=== PATIENT | female | born 1990 | race Two or more races ===

== ENCOUNTER 2020-11-25 12:20 | Emergency (ER) | payer MEDICAID ==
[~2020-11-25] VITALS: Ht 165.1 cm; Wt 108.9 kg
[2020-11-25 12:57] LABS: Basophils # (auto) 0 10 ^3/uL (0-0.2); Basophils % (auto) 0.3 % (0.0-2.0); Eosinophils # (auto) 0 10 ^3/uL (0-0.8); Eosinophils % (auto) 0.2 % (0.0-7.0); Hematocrit 32.1 % (36.0-46.0); Lymphocytes # (auto) 2.7 10 ^3/uL (0.4-5.4); Lymphocytes % (auto) 32.2 % (10.0-50.0); Mean Corpuscular Hemoglobin 27.7 pg (28.0-32.0); Mean Corpuscular Hgb Conc. 34.4 g/dL (32.0-36.0); Mean Corpuscular Volume 80.5 fL (80.0-100.0); Monocytes # (auto) 0.4 10 ^3/uL (0-1.3); Monocytes % (auto) 4.8 % (0.0-12.0); Neutrophils # (auto) 5.2 10 ^3/uL (1.6-8.6); Neutrophils % (auto) 62.5 % (37.0-80.0); Red Blood Cells 3.99 10^6/uL (4.0-5.20); Red Cell Distribution Width 13.7 % (11.8-14.3); White Blood Cell 8.3 10^3/uL (4.4-10.8)
[2020-11-25] MEDS ORDERED: KETOROLAC TROMETH 60MG/2ML VIAL IM ONE (15:15)
[2020-11-25 15:17] LABS: Urine Bacteria NONE SEEN /hpf (None Seen); Urine Blood 3+ /uL (Negative); Urine Budding Yeast OCCASIONAL /hpf (None Seen); Urine WBC 313 /hpf (0 - 5); Urine WBC Clumps PRESENT /hpf (None Seen)
[2020-11-25 15:21] VITALS: BP 121/82
== END 2020-11-25 15:45 | disposition home or self-care (01) ==
LOC: ER 12:20
DX: N92.0 Excessive and frequent menstruation with regular cycle (principal); N30.00 Acute cystitis without hematuria
CPT/HCPCS: 36415; 81001; 81025; 85025; 96372; 99283; J1885

== ENCOUNTER 2022-08-29 13:14 | Inpatient (IN) | payer MEDICAID ==
[~2022-08-29] VITALS: Ht 165.1 cm; Wt 115.5 kg
[2022-08-29 04:58] VITALS: BP 120/63
[2022-08-29] MEDS ORDERED: ALBUTEROL SULF 2.5 MG/0.5ML(0.5%) NEB SOLN HHN ONE (13:45)
[2022-08-29] MEDS ORDERED: methylPREDNISolone SOD SUCC 125 MG/2 ML VL IV ONE (13:45)
[2022-08-29] MEDS ORDERED: IPRATROPIUM BROM 0.5 MG/2.5ML INH SOL HHN ONE (13:45)
[2022-08-29 14:02] LABS: Basophils # (auto) 0 10 ^3/uL (0-0.2); Basophils % (auto) 0.2 % (0.0-2.0); Eosinophils # (auto) 0 10 ^3/uL (0-0.8); Hematocrit 32.5 % (36.0-46.0); Mean Corpuscular Hemoglobin 26.1 pg (28.0-32.0); Monocytes # (auto) 1.2 10 ^3/uL (0-1.3); Red Cell Distribution Width 14.9 % (11.8-14.3)
[2022-08-29 14:03] LABS: Eosinophils % (auto) 0.1 % (0.0-7.0); Hemoglobin 10.7 g/dL (12.2-16.2); Lymphocytes # (auto) 3.5 10 ^3/uL (0.4-5.4); Mean Corpuscular Hgb Conc. 32.8 g/dL (32.0-36.0); Mean Corpuscular Volume 79.5 fL (80.0-100.0); Neutrophils # (auto) 12.7 10 ^3/uL (1.6-8.6); Neutrophils % (auto) 72.7 % (37.0-80.0); Nucleated Red Blood Cells % 0.2 %; Red Blood Cells 4.08 10^6/uL (4.0-5.20); White Blood Cell 17.4 10^3/uL (4.4-10.8)
[2022-08-29 14:16] LABS: Albumin 2.9 g/dL (3.4-5.0); Calcium 8.9 mg/dL (8.5-10.1); Magnesium 2.2 mg/dL (1.6-2.6); Potassium 3.4 mmol/L (3.5-5.1)
[2022-08-29 14:20] LABS: BUN/Creatinine Ratio 12.5 (10.0-20.0); Bilirubin, Total 0.2 mg/dL (0.2-1.0); Total Protein 8.1 g/dL (6.4-8.2)
[2022-08-29 14:26] LABS: INR 0.92 (0.9-1.15); Partial Thromboplastin Time 25.1 sec (24.6-33.4)
[2022-08-29 16:00] VITALS: BP 125/73
[2022-08-29] MEDS ORDERED: cefTRIAXone 1GM/50ML D5W 50 ML IV ONE (16:00)
[2022-08-29] MEDS ORDERED: ALBUTEROL SULF 2.5 MG/0.5ML(0.5%) NEB SOLN NEB PRN (16:00)
[2022-08-29] MEDS ORDERED: AZITHROMYCIN 500MG/ 250ML 250 ML IV ONE (16:00)
[2022-08-29] MEDS ORDERED: POTASSIUM EFFERVESENT TAB 25 MEQ PO ONE (16:15)
[2022-08-29 16:55] LABS: Cholesterol 145 mg/dL (< 200)
[2022-08-29 16:59] LABS: HDL Cholesterol 49 mg/dL (40-59); LDL Cholesterol 74 mg/dL (< 100); Triglycerides 157 mg/dL (< 150)
[2022-08-29] MEDS: ALBUTEROL SULF 2.5 MG/0.5ML(0.5%) NEB SOLN NEB SCH ×2 (18:13→22:05)
[2022-08-29] MEDS: IPRATROPIUM BROM 0.5 MG/2.5ML INH SOL NEB SCH ×2 (18:13→22:05)
[2022-08-29 20:57] LABS: Urine Bacteria NONE SEEN /hpf (None Seen); Urine Blood Negative /uL (Negative); Urine Specific Gravity 1.017 (1.001-1.035); Urine WBC 1 /hpf (0 - 5)
[2022-08-30] MEDS: ALBUTEROL SULF 2.5 MG/0.5ML(0.5%) NEB SOLN NEB SCH ×6 (02:03→22:05)
[2022-08-30] MEDS: IPRATROPIUM BROM 0.5 MG/2.5ML INH SOL NEB SCH ×6 (02:03→22:05)
[2022-08-30] MEDS ORDERED: HYDROcodone-ACET 5/325MG TAB PO ONE (02:15)
[2022-08-30 05:00] VITALS: BP 123/73
[2022-08-30 05:10] LABS: Basophils # (auto) 0 10 ^3/uL (0-0.2); Basophils % (auto) 0.1 % (0.0-2.0); Eosinophils # (auto) 0 10 ^3/uL (0-0.8); Hematocrit 31.6 % (36.0-46.0); Hemoglobin 10.5 g/dL (12.2-16.2); Lymphocytes # (auto) 1.8 10 ^3/uL (0.4-5.4); Lymphocytes % (auto) 11.6 % (10.0-50.0); Mean Corpuscular Hemoglobin 26.4 pg (28.0-32.0); Mean Corpuscular Hgb Conc. 33.1 g/dL (32.0-36.0); Mean Corpuscular Volume 79.7 fL (80.0-100.0); Monocytes # (auto) 0.7 10 ^3/uL (0-1.3); Monocytes % (auto) 4.4 % (0.0-12.0); Neutrophils # (auto) 13.1 10 ^3/uL (1.6-8.6); Neutrophils % (auto) 83.9 % (37.0-80.0); Nucleated Red Blood Cells % 0.1 %; Red Blood Cells 3.97 10^6/uL (4.0-5.20); Red Cell Distribution Width 14.7 % (11.8-14.3); White Blood Cell 15.6 10^3/uL (4.4-10.8)
[2022-08-30 05:33] LABS: Calcium 9.3 mg/dL (8.5-10.1); Potassium 4.1 mmol/L (3.5-5.1)
[2022-08-30 05:36] LABS: BUN/Creatinine Ratio 10.9 (10.0-20.0); Bilirubin, Total 0.2 mg/dL (0.2-1.0); Total Protein 8.3 g/dL (6.4-8.2)
[2022-08-30] MEDS ORDERED: methylPREDNISolone SOD SUCC 125 MG/2 ML VL IV ONE (06:00)
[2022-08-30] MEDS ORDERED: PNEUMOCOCCAL VACC POLYS 25 MCG/0.5 ML VIAL IM SCH (07:30)
[2022-08-30] MEDS: ENOXAPARIN SOD 40 MG/0.4 ML SYRINGE SC SCH (08:58)
[2022-08-30] MEDS: cefTRIAXone 1GM/50ML D5W 50 ML IV SCH (08:58)
[2022-08-30 09:00] VITALS: BP 112/74
[2022-08-30] MEDS ORDERED: IOHEXOL 350 MG/ML 100ML IJ ONE (10:06)
[2022-08-30 12:01] LABS: Hepatitis C Antibody Negative (Negative)
[2022-08-30] MEDS: AZITHROMYCIN 500MG/ 250ML 250 ML IV SCH (12:33)
[2022-08-30 12:52] VITALS: BP 133/96
[2022-08-30] MEDS: HYDROcodone-ACET 5/325MG TAB PO PRN ×2 (13:25→18:54)
[2022-08-30 17:12] VITALS: BP 122/90
[2022-08-30 22:55] VITALS: BP 131/79
[2022-08-31] MEDS: HYDROcodone-ACET 5/325MG TAB PO PRN (00:22)
[2022-08-31] MEDS: IPRATROPIUM BROM 0.5 MG/2.5ML INH SOL NEB SCH ×6 (02:14→22:03)
[2022-08-31] MEDS: ALBUTEROL SULF 2.5 MG/0.5ML(0.5%) NEB SOLN NEB SCH ×6 (02:14→22:03)
[2022-08-31 04:47] VITALS: BP 110/74
[2022-08-31] MEDS: MORPHINE SULFATE INJ 2 MG/ml SYRG IV PRN ×4 (05:57→21:31)
[2022-08-31] MEDS: ENOXAPARIN SOD 40 MG/0.4 ML SYRINGE SC SCH (08:45)
[2022-08-31] MEDS: cefTRIAXone 1GM/50ML D5W 50 ML IV SCH (08:45)
[2022-08-31 09:12] VITALS: BP 122/80
[2022-08-31] MEDS: AZITHROMYCIN 500MG/ 250ML 250 ML IV SCH (10:18)
[2022-08-31 12:56] VITALS: BP 135/91
[2022-08-31 22:00] VITALS: BP 124/101
[2022-09-01] MEDS ORDERED: methylPREDNISolone SOD SUCC 125 MG/2 ML VL IM ONE (00:30)
[2022-09-01] MEDS: IPRATROPIUM BROM 0.5 MG/2.5ML INH SOL NEB SCH ×6 (02:32→22:06)
[2022-09-01] MEDS: ALBUTEROL SULF 2.5 MG/0.5ML(0.5%) NEB SOLN NEB SCH ×6 (02:32→22:06)
[2022-09-01 05:00] VITALS: BP 107/75
[2022-09-01] MEDS: methylPREDNISolone SOD SUCC 40 MG/ML VL IV SCH ×3 (07:13→23:43)
[2022-09-01] MEDS: MORPHINE SULFATE INJ 2 MG/ml SYRG IV PRN (07:14)
[2022-09-01 08:54] VITALS: BP 138/71
[2022-09-01] MEDS: ENOXAPARIN SOD 40 MG/0.4 ML SYRINGE SC SCH ×2 (09:59→23:43)
[2022-09-01] MEDS: AZITHROMYCIN 500MG/ 250ML 250 ML IV SCH (09:59)
[2022-09-01] MEDS: cefTRIAXone 1GM/50ML D5W 50 ML IV SCH (09:59)
[2022-09-01 12:53] VITALS: BP 141/81
[2022-09-01 13:26] VITALS: BP 107/75
[2022-09-01 17:24] VITALS: BP 142/78
[2022-09-01 22:00] VITALS: BP 117/68
[2022-09-01] MEDS: KETOROLAC TROMETH 30 MG/ML 1ML VIAL IV PRN (23:44)
[2022-09-02] MEDS: IPRATROPIUM BROM 0.5 MG/2.5ML INH SOL NEB SCH ×5 (02:00→21:17)
[2022-09-02] MEDS: ALBUTEROL SULF 2.5 MG/0.5ML(0.5%) NEB SOLN NEB SCH ×5 (02:00→21:17)
[2022-09-02 05:00] VITALS: BP 110/68
[2022-09-02 05:11] LABS: Albumin 2.4 g/dL (3.4-5.0); Potassium 3.8 mmol/L (3.5-5.1)
[2022-09-02 05:13] LABS: BUN/Creatinine Ratio 19.7 (10.0-20.0); Phosphorus 4.5 mg/dL (2.5-4.90)
[2022-09-02] MEDS: KETOROLAC TROMETH 30 MG/ML 1ML VIAL IV PRN ×2 (06:30→21:23)
[2022-09-02] MEDS: methylPREDNISolone SOD SUCC 40 MG/ML VL IV SCH ×3 (06:30→21:22)
[2022-09-02 08:28] VITALS: BP 130/80
[2022-09-02] MEDS: cefTRIAXone 1GM/50ML D5W 50 ML IV SCH (08:55)
[2022-09-02] MEDS: ACETAMINOPHEN 325 MG TAB PO PRN (08:56)
[2022-09-02] MEDS: AZITHROMYCIN 500MG/ 250ML 250 ML IV SCH (10:02)
[2022-09-02] MEDS: ENOXAPARIN SOD 40 MG/0.4 ML SYRINGE SC SCH ×2 (10:03→21:23)
[2022-09-02 13:00] VITALS: BP 135/77
[2022-09-02 17:16] VITALS: BP 111/84
[2022-09-02] MEDS: MELATONIN 5 MG TAB PO SCH (21:23)
[2022-09-02 22:00] VITALS: BP 140/83
[2022-09-03] MEDS: IPRATROPIUM BROM 0.5 MG/2.5ML INH SOL NEB SCH ×7 (02:00→22:33)
[2022-09-03] MEDS: ALBUTEROL SULF 2.5 MG/0.5ML(0.5%) NEB SOLN NEB SCH ×7 (02:00→22:33)
[2022-09-03 05:00] VITALS: BP 118/68
[2022-09-03] MEDS: methylPREDNISolone SOD SUCC 40 MG/ML VL IV SCH ×3 (06:16→21:55)
[2022-09-03] MEDS: ACETAMINOPHEN 325 MG TAB PO PRN ×2 (06:16→09:51)
[2022-09-03 09:00] VITALS: BP 123/72
[2022-09-03] MEDS: cefTRIAXone 1GM/50ML D5W 50 ML IV SCH (09:50)
[2022-09-03] MEDS: AZITHROMYCIN 500MG/ 250ML 250 ML IV SCH (09:50)
[2022-09-03] MEDS: ENOXAPARIN SOD 40 MG/0.4 ML SYRINGE SC SCH ×2 (10:00→21:55)
[2022-09-03 12:06] LABS: Basophils # (auto) 0.1 10 ^3/uL (0-0.2); Basophils % (auto) 0.4 % (0.0-2.0); Eosinophils # (auto) 0 10 ^3/uL (0-0.8); Hemoglobin 10.7 g/dL (12.2-16.2); Monocytes % (auto) 4.9 % (0.0-12.0); Nucleated Red Blood Cells % 0.1 %
[2022-09-03 12:08] LABS: Eosinophils % (auto) 0.1 % (0.0-7.0); Hematocrit 33.1 % (36.0-46.0); Lymphocytes % (auto) 13.3 % (10.0-50.0); Mean Corpuscular Hemoglobin 25.9 pg (28.0-32.0); Mean Corpuscular Hgb Conc. 32.5 g/dL (32.0-36.0); Mean Corpuscular Volume 79.6 fL (80.0-100.0); Monocytes # (auto) 0.7 10 ^3/uL (0-1.3); Neutrophils # (auto) 12.5 10 ^3/uL (1.6-8.6); Neutrophils % (auto) 81.3 % (37.0-80.0); Red Blood Cells 4.15 10^6/uL (4.0-5.20); Red Cell Distribution Width 14.9 % (11.8-14.3); White Blood Cell 15.3 10^3/uL (4.4-10.8)
[2022-09-03 12:23] LABS: BUN/Creatinine Ratio 19.4 (10.0-20.0); Calcium 9.1 mg/dL (8.5-10.1); Potassium 4.1 mmol/L (3.5-5.1)
[2022-09-03 12:30] VITALS: BP 127/64
[2022-09-03 20:00] VITALS: BP 116/67
[2022-09-03] MEDS: MELATONIN 5 MG TAB PO SCH (21:56)
[2022-09-03 22:00] VITALS: BP 116/67
[2022-09-04 05:00] VITALS: BP_SYST 122; BP_SYST 128; BP_DIAS 60; BP_DIAS 79
[2022-09-04] MEDS: methylPREDNISolone SOD SUCC 40 MG/ML VL IV SCH ×2 (05:48→14:00)
[2022-09-04] MEDS: IPRATROPIUM BROM 0.5 MG/2.5ML INH SOL NEB SCH ×2 (06:33→10:34)
[2022-09-04] MEDS: ALBUTEROL SULF 2.5 MG/0.5ML(0.5%) NEB SOLN NEB SCH ×2 (06:34→10:34)
[2022-09-04 08:44] VITALS: BP 128/79
[2022-09-04] MEDS: cefTRIAXone 1GM/50ML D5W 50 ML IV SCH (09:13)
[2022-09-04] MEDS: ENOXAPARIN SOD 40 MG/0.4 ML SYRINGE SC SCH (09:14)
[2022-09-04 09:18] VITALS: BP 114/74
[2022-09-04] MEDS ORDERED: AZITHROMYCIN 250 MG TAB PO SCH (10:00)
[2022-09-04] MEDS: ACETAMINOPHEN 325 MG TAB PO PRN (10:48)
[2022-09-04] MEDS ORDERED: LEVO500T31 PO (12:32)
== END 2022-09-04 14:25 | disposition home or self-care (01) | DRG 193 ==
LOC: EDBD 13:14 → ER 13:14 → EDUNIT# 13:14 → OVERFLOW 16:04 → WEST WING 22:50
PROVIDERS: ADMIT Nurse Practitioner Family; ATTEND Internal Medicine Geriatric Medicine
DX: J18.9 Pneumonia, unspecified organism (principal); J96.01 Acute respiratory failure with hypoxia; Z68.41 Body mass index [BMI] 40.0-44.9, adult; E66.01 Morbid (severe) obesity due to excess calories; E87.6 Hypokalemia; Z20.822 Contact with and (suspected) exposure to COVID-19; Z79.899 Other long term (current) drug therapy
CPT/HCPCS: 36415; 71045; 71275; 73060; 73221; 80048; 80053; 80061; 80069; 81001; 81025; 83036; 83605; 83735; 83880; 84443; 84484; 84702; 85025; 85049; 85379; 85610; 85730; 86803; 87040; 87340; 87426; 87804; 93005; 94640; 94644; 96365; 96375; G0378; J0696; J1885